=== PATIENT | male | born 1940 | race Caucasian/White ===

== ENCOUNTER → 2023-04-09 09:00 | Outpatient (CLI) | payer MEDICARE, OTHER, SELFPAY ==
--- NOTE | 2023-04-09 | DI.ECHO.S_ITS ---
[facility] +---------+ : : [address] : : : : [id number] : : : : Phone: [phone]+ Echocardiogram Report + + :Name: MIKAL MCDANIEL Study Date: 04/09/2023 Height: 73 in : :[facility] ReadingLocation: Weight: 202 lb : : Gender: Male BSA: 2.2 m2 : :: 1940 Age: 82 yrs BP: 120/74 mmHg: :Reason For Study: SHORTNESS OF BREATH : :Ordering Physician: AAKASH ESCOTO : :Kristan Mcgowan Performed By: Martha Pulido : :Referring: AAKASH ESCOTO P.A-C : + + Interpretation Summary The left ventricle is normal in size and wall thickness. Left ventricular systolic function appears normal without focal wall motion abnormalities. The ejection fraction is estimated to be 60-65%. Diastolic parameters suggest a relaxation abnormality of the left ventricle, consistent with probable normal filling pressures. The right ventricle is normal size. Right ventricular systolic function is borderline reduced. The right ventricular systolic pressure is estimated to be at least 27 mmHg based on an estimated right atrial pressure of 3 mm Hg. The left atrial size is normal. There is mildly reduced leaflet mobility. There is discrete nodular thickening of the right coronary cusp. The peak aortic velocity is 2.3 m/sec. There is mild aortic regurgitation. There is no other significant valvular heart disease. The aortic root is mildly dilated. The ascending aorta is mildly enlarged. The aortic arch is moderately enlarged. Procedure: A two-dimensional transthoracic echocardiogram with color flow and Doppler was performed. The study quality was technically adequate. There is no prior echocardiogram noted for this patient. The patient was in sinus rhythm with heart rates between 64-73 bpm during the exam. Left Ventricle: The left ventricle is normal in size and wall thickness. Left ventricular systolic function appears normal without focal wall motion abnormalities. The ejection fraction is estimated to be 60-65%. Diastolic parameters suggest a relaxation abnormality of the left ventricle, consistent with probable normal filling pressures. Right Ventricle: The right ventricle is normal size. Right ventricular systolic function is borderline reduced. Atria: The left atrial size is normal. Right atrial size is normal. There is no Doppler evidence for an interatrial shunt. Mitral Valve: The mitral valve is normal in structure and function. There is trace mitral regurgitation. Aortic Valve: The aortic valve is trileaflet. The aortic valve is mildly calcified. There is mildly reduced leaflet mobility. There is discrete nodular thickening of the right coronary cusp. The peak aortic velocity is 2.3 m/sec. The aortic valve mean gradient is 12 mmHg. There is mild aortic regurgitation. Tricuspid Valve: The tricuspid valve is normal in structure and function. There is mild tricuspid regurgitation. The right ventricular systolic pressure is estimated to be at least 27 mmHg based on an estimated right atrial pressure of 3 mm Hg. Pulmonic Valve: The pulmonic valve leaflets are thin and pliable; valve motion is normal. There is trace pulmonic regurgitation. There is no other significant valvular heart disease. Great Vessels: The aortic root is mildly dilated. The ascending aorta is mildly enlarged. The aortic arch is moderately enlarged. The IVC is of normal diameter and collapses greater than 50% with a sniff. This suggests a low right atrial pressure of 3 mm Hg. Pericardium/ Pleura There is no pericardial effusion. There is no pleural effusion. MMode/2D Measurements & Calculations LVIDd: 4.2 cm LVOT diam: 2.4 cm LVIDs: 2.8 cm Ao root diam: 4.3 cm FS: 32.7 % asc Aorta Diam: 3.6 cm IVSd: 0.88 cm Ao Arch Diam (Prox Trans): 3.8 cm LVPWd: 0.99 cm LV toney. diameter/BSA (cm/m^2): 1.9 LV sys. diameter/BSA (cm/m^2): 1.3 LA A2 area: 14.4 cm2 RA long axis: 4.2 cm LA A4 area: 12.3 cm2 RA area: 10.1 cm2 LA length (vol): 4.8 cm RA vol: 20.3 ml LA vol: 31.0 ml RA : 9.4 ml/m2 LA vol index: 14.4 ml/m2 IVC diam: 1.2 cm RVD1 (basal): 3.0 cm RVD2 (mid): 2.9 cm TAPSE: 1.6 cm Doppler Measurements & Calculations Ao V2 max: 227.9 cm/sec LVOT Max Melo: 122.2 cm/sec Ao V2 mean: 162.5 cm/sec LV V1 max P.0 mmHg Ao max P.8 mmHg LV V1 VTI: 26.4 cm Ao mean P.5 mmHg KARLA(I,D): 2.4 cm2 Ao V2 VTI: 50.7 cm KARLA(V,D): 2.5 cm2 sev ratio: 0.52 KARLA indexed to BSA (cm^2/m^2): 1.1 AI P1/2t: 622.2 msec AI dec slope: 189.4 cm/sec2 MV E max melo: 69.5 cm/sec TR max melo: 244.5 cm/sec MV A max melo: 90.4 cm/sec TR max P.9 mmHg MV E/A: 0.77 PA V2 max: 84.6 cm/sec Med Peak E' Melo: 5.8 cm/sec PA V2 mean: 58.0 cm/sec E/E' med: 12.0 PA mean P.5 mmHg Lat Peak E' Melo: 6.3 cm/sec E/E' lat: 11.0 E/e' average: 11.5 MV dec time: 0.28 sec SV(LVOT): 122.7 ml Reading Physician:12:23 PM
== END ==
PROVIDERS: Referring Provider Physician Assistant; Visit Provider Physician Assistant
DX: R06.02 Shortness of breath (principal); R42 Dizziness and giddiness; I35.1 Nonrheumatic aortic (valve) insufficiency; I51.7 Cardiomegaly
CPT/HCPCS: 93306

== ENCOUNTER → 2024-02-23 13:23 | Outpatient (CLI) | payer MEDICARE, OTHER, SELFPAY ==
--- NOTE | 2024-02-23 13:25 | DI.NM.S_ITS ---
PROCEDURE: NM HANK PERF SPECT R&S PHARM Rest and pharmacological stress myocardial perfusion SPECT with gated imaging and ejection fraction RADIOPHARMACEUTICAL: 27.5 mCi Tc-99m tetrafosmin IV at rest and 24.5 mCi Tc-99m tetrafosmin IV at peak effect of pharmacological stress. [id number] was performed. INDICATIONS: BILATERAL ARM PAIN,EXERTIONAL SOB PQRS ATTESTATIONS: Measure 322 - Is this imaging test primarily performed on a low-risk surgery patient for preoperative evaluation within 30 days preceding their low-risk non-cardiac surgery? Low-risk surgery is defined as cardiac or myocardial infarction less than 1%, including (but not limited to) endoscopic procedures, superficial procedures, cataract surgery, and excisional breast surgery: Answer: No Measure 323 - Is this imaging test performed primarily for the monitoring of an asymptomatic patient who had percutaneous coronary intervention on the visit date or within 2 years of the visit date? Answer: No Measure 324 - Is this imaging test performed primarily for the initial detection and risk assessment on an asymptomatic, low coronary heart disease patient? Low CHD risk definition = clinicians should consider the maximum number of available patient factors used to estimate risk based on [place] (ATP III criteria), typically age, gender, diabetes, smoking status, and use of blood pressure medication, and integrate age appropriate estimates for missing elements, such as LDL or standard blood pressure. Answer: No TECHNIQUE: Radiopharmaceutical was injected at peak stress test, and also at rest. SPECT images were obtained. SPECT myocardial perfusion images were displayed in short axis, horizontal long axis, and vertical long axis views. Gated images were reviewed using [employer] software. COMPARISON: None. CARDIAC STRESS: A pharmacologic stress test was performed under the supervision of an attending staff, using an infusion of 0.4 mg of Lexiscan. Hemodynamic data: There is normal blood pressure and heart rate response to pharmacologic stress. Symptoms: The patient denied anginal chest pain. Aminophylline: None EKG: No diagnostic changes of ischemia; no ectopy. FINDINGS: Raw data: There is good myocardial uptake of radiotracer. No significant motion artifacts. Pgjo-[id number] ratio is 0.26 (normal is less than 0.38 for tetrafosmin tracer). Left ventricle function: Gated images demonstrate normal left ventricular wall thickening. No segmental wall motion abnormalities. No transient ischemic dilation; TID is 0.92 (normal less than 1.3). Left ventricle resting end diastolic volume is 67 mL. Left ventricle stress ejection fraction is 95; normal range is above 45%. Myocardial perfusion: There is normal distribution of activity in the right and left ventricular myocardium. No fixed or reversible perfusion defects. IMPRESSION: Normal Lexiscan myocardial perfusion scan with no evidence of ischemia nor infarction. Dictated by: Vance Cortez M.D. on 02/24/2024 at 12:26 Approved by: Vance Cortez M.D. on 02/24/2024 at 12:28
== END ==
PROVIDERS: Referring Provider Internal Medicine Cardiovascular Disease; Visit Provider Internal Medicine Cardiovascular Disease
DX: M79.601 Pain in right arm (principal); M79.602 Pain in left arm; R06.02 Shortness of breath
CPT/HCPCS: 78452; 93017; A9502; J2785